=== PATIENT | female | born 1960 | race Caucasian/White ===

== ENCOUNTER 2016-09-26 13:25 | Emergency (ER) | payer OTHER ==
[~2016-09-26] VITALS: Ht 157.5 cm; Wt 65.5 kg
[2016-09-26 13:28] VITALS: BP 115/78; PULSE 94; RESP 20; O2SAT 99
--- NOTE | 2016-09-26 13:47 | ED.REPORT ---
HPI-NVD Date of Service Sep 26, 2016 ED Provider: Brittany Rangel History of Present Illness: vomiting diarrhea nausea, dizzy since Tuesday am. Nothing oral since Tuesday. Saw Kay CAse on for carpal tunnel. Surgery was done last year. in and 04/2016 Nursing Notes Stated Complaint: DIZZY,VOMITING Chief Complaint: Female Abdominal Pain Nursing Notes Reviewed: Yes Allergies: Coded Allergies: Penicillins (Verified Allergy, Mild, 09/26/16) General Time Seen by MD: 13:37 Chief Complaint Nausea, Vomiting, Diarrhea Hx Obtained From: Patient Onset Occurred: 3 days ago Symptom Duration: Since onset Past Medical History Past Medical History Denies: Asthma, Diabetes mellitus Past Surgical History carpal tunnel surgery 02/2016, and 04/2016 Smoking History Former Smoker (quit 19 years ago) Social History Alcohol Use: Denies alcohol use Drug Use: Denies drug use Occupation lives with 2 daughters, no work or school Ambulatory Status Independent Review of Systems Basic Review of Systems Eyes: Vision NL, No discharge Hematologic: No bleeding, No bruising Psychiatric: Normal thought content Physical Exam Initial Vital Signs Vital Signs (First) Date Time Temp Pulse Resp B/P Pulse Ox O2 Delivery O2 Flow Rate FiO2 09/26/16 13:28 36.4 94 20 115/78 99 Room Air Initial VS: Reviewed, Vital signs normal Head / Eyes: Atraumatic, Normocephalic, PERRL ENT: Mucous membranes moist, Conjunctiva normal, No scleral icterus Neck: Supple, Non-tender, Full range of motion Respiratory: Breath sounds normal, Clear to auscultation, No respiratory distress Cardiovascular: Regular rate & rhythm, Heart sounds normal, Intact distal pulses Back: No CVA tenderness Lymphatic: No lymphadenopathy Extremities: Vascular intact, Neuro intact, No swelling, No tenderness Skin: Warm, Dry, No cyanosis Neurologic: Alert, Oriented, Nonfocal Psychiatric: Mood/affect normal, Behavior normal, Normal thought content General/Constitutional: Awake, Alert, No acute distress, Well appearing, Well developed, Well hydrated Abdomen: Atraumatic, Soft, Non-tender, McBurney's non-tender, No guarding, No rebound, No distention Bowel Sounds / Distention: Positive: Bowel sounds hypoactive ENT: Atraumatic, Airway patent, Mucous membranes moist, Pharynx NL Respiratory / Chest: Atraumatic, Breath sounds NL, Breath sounds = bilat, No respiratory distress Cardiovascular: Heart rate NL, Regular rhythm, Heart sounds NL, No gallop Interpretation & Diagnostics Lab Results Interpretation Result Diagram: 09/26/16 1440 09/26/16 1440 Test 09/26/16 14:20 09/26/16 14:40 Urine Color Yellow (YELLOW) Urine Appearance Hazy (CLEAR,HAZY) Urine pH 5.5 (5.0-8.0) Urine Specific [place] 1.030 (1.003-1.035) Urine Protein Tracemg/dL (NEG,TRACE) Urine Glucose (UA) Negativemg/dL (NEGATIVE) Urine Ketones 80mg/dL (NEGATIVE) Urine Occult Blood Negative (NEGATIVE) Urine Nitrite Negative (NEGATIVE) Urine Bilirubin Negative (NEGATIVE) Urine Urobilinogen Normalmg/dL (NORMAL) Urine Leukocyte Esterase Moderate (NEGATIVE) Urine RBC 0-2/hpf (0-2) Urine WBC 6-10/hpf (0-5) Urine Epithelial Cells Few/hpf (NONE-MOD) Urine Crystals None seen (NONE SEEN) Urine Bacteria Few/hpf (NONE-FEW) Urine Hyaline Casts None/lpf (NONE) Urine Granular Casts None seen (NONE SEEN) Urine Waxy Casts None seen (NONE SEEN) Urine Red Blood Cell Casts None seen (NONE SEEN) Urine White Blood Cell Casts None seen (NONE SEEN) Urine Mucus None seen (None Seen) Urine Trichomonas None seen (NONE SEEN) Urine Yeast None (NONE SEEN) Urinalysis Comment None Urine Culture Reflexed Indicated White Blood Count 9.6th/mm3 (3.8-10.1) Red Blood Count 4.66mil/mm3 (3.90-5.20) Hemoglobin 14.5g/dL (12.0-15.6) Hematocrit 42.3% (35.0-46.0) Mean Corpuscular Volume 90.8fL (81-100) Mean Corpuscular Hemoglobin 31.1pg (27.0-35.0) Mean Corpuscular Hemoglobin Concent 34.3% (32.0-37.0) Red Cell Distribution Width 12.2% (12.3-15.4) Platelet Count 256bil/L (150-400) Neutrophils (%) (Auto) 82.2% (40-74) Lymphocytes (%) (Auto) 12.1% (14-46) Monocytes (%) (Auto) 5.1% (4-12) Eosinophils (%) (Auto) 0.1% (0-5) Basophils (%) (Auto) 0.3% (0-3) Sodium Level 139mEq/L (134-144) Potassium Level 3.5mEq/L (3.5-5.2) Chloride Level 99mEq/L (97-108) Carbon Dioxide Level 19mmol/L (18-29) Blood Urea Nitrogen 19mg/dL (6-24) Creatinine 0.78mg/dL (0.57-1.00) Estimat Glomerular Filtration Rate 109mL/min (>59) Glucose Level 91mg/dL (60-99) Calcium Level 9.8mg/dL (8.5-10.1) Total Bilirubin 1.0mg/dL (0.0-1.2) Aspartate Amino Transf (AST/SGOT) 17U/L (0-50) Alanine Aminotransferase (ALT/SGPT) 16U/L (0-32) Alkaline Phosphatase 66U/L (25-150) Total Protein 7.7g/dL (6.4-8.4) Albumin 4.7g/dL (3.4-5.0) Hold Amaro Top Tube Received (Received) Lab Results Interpretation: postural normal, urine with infection Re-Eval/Medical Decision Med Decision/Clinical Course 55 year old female present to the ER with 3 days hx of NVD with dizziness. Labs are unremarkable, exam is reassuring. Urine shows infection. No sign of appendicitis. Discharge & Departure Impression: Primary Impression: Urinary tract infection Hematuria presence: with hematuria Additional Impressions: Vomiting Vomiting type: unspecified Diarrhea Diarrhea type: unspecified type Qualified Code: R19.7 - Diarrhea, unspecified Episode of dizziness Disposition: Home Patient Instructions: Acute Diarrhea (ED), Acute Nausea and Vomiting (ED), Urinary Tract Infection in Women (ED) Additional Instructions: Your labs are normal. Your urine shows infection. You have had a liter of fluid in the ER along with some nausea medication. Your posturals are normal. You have received a dose of bactrim in the ER. Please take this medication in the am and pm for 7 days. You are also being provided some zofran for nausea and vomiting. The zofran can cause constipation so make sure you get fiber in your diet. Please follow with primary care for a recheck later this week. REturn with any concerns. Referrals: Angely Sparrow EDSupervising Provider for APC: Kelli Raya MD copies to: Angely Sparrow Sue ARNP Sep 26, 2016 13:47
[2016-09-26] MEDS ORDERED: Ondansetron 2 mg/mL 2 mL Inj IVPUSH ONE (13:55)
[2016-09-26] MEDS ORDERED: 0.9% Sodium Chloride 1,000 ML IV ONE (13:55)
[2016-09-26 14:47] LABS: APPEARANCE,URINE HAZY (CLEAR,HAZY); COLOR,URINE YELLOW (YELLOW); OCCULT BLOOD,URINE NEGATIVE (NEGATIVE); PH,URINE 5.5 (5.0-8.0); UROBILINOGEN,URINE NORMAL (NORMAL)
[2016-09-26 14:51] LABS: BASOPHILS % (AUTO) 0.3 % (0-3); EOSINOPHILS % (AUTO) 0.1 % (0-5); MONOCYTES % (AUTO) 5.1 % (4-12); Mean Corpuscular Hemoglobin 31.1 pg (27.0-35.0); Mean Corpuscular Volume 90.8 fL (81-100); NEUTROPHILS % (AUTO) 82.2 % (40-74); Platelet Count 256 bil/L (150-400)
[2016-09-26] MEDS ORDERED: Trimethoprim-Sulfa 160 mg-800 mg Tablet PO ONE (15:10)
[2016-09-26 15:33] VITALS: BP_SYST 128; BP_SYST 136; BP_DIAS 79; BP_DIAS 88; PULSE 75; PULSE 91; O2SAT 97; O2SAT 98
[2016-09-26 15:54] VITALS: BP 119/64; PULSE 73; RESP 16; O2SAT 96
== END 2016-09-26 15:36 | disposition home or self-care (01) ==
LOC: SED 13:25
DX: N30.91 Cystitis, unspecified with hematuria (principal); R19.7 Diarrhea, unspecified; Z87.891 Personal history of nicotine dependence; Z88.0 Allergy status to penicillin
CPT/HCPCS: 36415; 80053; 81000; 85025; 87086; 87088; 96361; 96374; 96375; 99285; J1885; J2405; J7030